=== PATIENT | female | born 1970 | race American Indian/Alaskan Native ===

== ENCOUNTER 2018-05-06 20:39 | Emergency (ER) | payer SELFPAY | END 2018-05-06 20:40 | LOC: ED 20:39 | DX: R51 Headache (principal); Z53.21 Procedure and treatment not carried out due to patient leaving prior to being seen by health care provider ==

== ENCOUNTER 2019-08-10 09:58 | Emergency (ER) | payer SELFPAY ==
[2019-08-10 10:40] VITALS: BP 128/50
[2019-08-10] MEDS ORDERED: BENZONATATE 100 MG CAP PO ONE (12:21)
[2019-08-10] MEDS ORDERED: KETOROLAC 60 MG/2 ML INJ IM ONE (12:21)
[2019-08-10] MEDS ORDERED: predniSONE 20 MG TAB PO ONE (12:21)
--- NOTE | 2019-08-10 13:02 | XRay Report ---
CHEST 2 VIEWS INDICATION / CLINICAL INFORMATION: Cough. COMPARISON: None available. FINDINGS: SUPPORT DEVICES: None. HEART / MEDIASTINUM: The heart size and pulmonary vasculature are normal. LUNGS / PLEURA: No significant pulmonary or pleural abnormality. No pneumothorax. ADDITIONAL FINDINGS: No significant additional findings. IMPRESSION: No acute findings. Signer Name: Vasu Villavicencio MD Signed: 08/10/2019 12:58 PM Workstation Name: [id number]
--- NOTE | 2019-08-10 13:31 | Emergency Department Report ---
ED Back Pain/Injury HPI - General Chief Complaint: Upper Respiratory Infection Stated Complaint: COUGH, BACK PAIN, Time Seen by Provider: 08/10/19 12:20 Source: patient Limitations: No Limitations - History of Present Illness Initial Comments: This is a 49-year-old female nontoxic, well nourished in appearance, no acute signs of distress presents to the ED with c/o of acute on chronic lower back pain x2 days. Patient also stated has a nonproductive cough x1 month. Denies any sick contacts. Patient denies any recent travels, long car, recent hospital stays. Patient denies any calf pain or calf tenderness. Patient stated that the past 2 days he was moving and developed this pain. Patient denies any radiation of pain. Patient denies any trauma. Denies any bladder or bowel instability. Patient denies any urinary symptoms. Denies any fever, chills, nausea, vomiting, headache, stiff neck, chest pain or shortness of breath. Patient denies any numbness or tingling. Allergies includes steroids. PMH includes cholecystectomy and headaches. MD Complaint: back pain -: days(s) Similar Symptoms Previously: Yes Place: home Radiation: none Severity: mild Severity scale (0 -10): 8 Quality: aching Consistency: intermittent Improves With: immobilization, sitting upright Worsens With: movement, walking Context: while lifting, turning/twisting Associated Symptoms: cough. denies: confusion, chest pain, numbness, difficulty walking, difficulty urinating, diaphoresis, incontinence, fever/chills, headaches, abdominal pain, loss of appetite, malaise, nausea/vomiting, rash, seizure, shortness of breath, syncope - Related Data Home Medications Medication Instructions Recorded Confirmed Last Taken Naproxen [Naprosyn TAB] 500 mg PO BID PRN 09/28/14 09/28/14 Unknown acetaZOLAMIDE [Diamox TAB] 500 mg PO BID PRN 09/28/14 09/28/14 Unknown Previous Rx's Medication Instructions Recorded Last Taken Type Ibuprofen [Motrin] 800 mg PO Q8HR PRN #30 tablet 11/07/18 Unknown Rx levETIRAcetam [Keppra TAB] 500 mg PO BID #60 tablet 11/07/18 Unknown Rx Cyclobenzaprine [Flexeril] 10 mg PO QHS PRN #10 tablet 08/10/19 Unknown Rx Naproxen 500 mg PO Q12H PRN #20 tablet 08/10/19 Unknown Rx Allergies Allergy/AdvReac Type Severity Reaction Status Date / Time CITRUS Allergy Hives Uncoded 09/28/14 10:49 STEROID Allergy Unknown Uncoded 01/10/15 13:08 ED Review of Systems ROS: Stated complaint: COUGH, BACK PAIN, Other details as noted in HPI Constitutional: denies: chills, fever Eyes: denies: eye pain, eye discharge, vision change ENT: congestion. denies: ear pain, throat pain Respiratory: cough. denies: shortness of breath, wheezing Cardiovascular: denies: chest pain, palpitations Endocrine: no symptoms reported Gastrointestinal: denies: abdominal pain, nausea, diarrhea Genitourinary: denies: urgency, dysuria, discharge Musculoskeletal: back pain. denies: joint swelling, arthralgia Skin: denies: rash, lesions Neurological: denies: headache, weakness, paresthesias Psychiatric: denies: anxiety, depression Hematological/Lymphatic: denies: easy bleeding, easy bruising ED Past Medical Hx - Past Medical History Previous Medical History?: Yes Hx Hypertension: No Hx Headaches / Migraines: Yes Additional medical history: Pseudotumor cerebri, hidradenitis suppurativa, Intracranial HTN, Blood clots in brain - Surgical History Past Surgical History?: Yes Hx Cholecystectomy: Yes Additional Surgical History: breast, axillary cyst removal - Social History Smoking Status: Current Some Day Smoker Substance Use Type: Alcohol - Medications Home Medications: Home Medications Medication Instructions Recorded Confirmed Last Taken Type Naproxen [Naprosyn TAB] 500 mg PO BID PRN 09/28/14 09/28/14 Unknown History acetaZOLAMIDE [Diamox TAB] 500 mg PO BID PRN 09/28/14 09/28/14 Unknown History Ibuprofen [Motrin] 800 mg PO Q8HR PRN #30 tablet 11/07/18 Unknown Rx levETIRAcetam [Keppra TAB] 500 mg PO BID #60 tablet 11/07/18 Unknown Rx Cyclobenzaprine [Flexeril] 10 mg PO QHS PRN #10 tablet 08/10/19 Unknown Rx Naproxen 500 mg PO Q12H PRN #20 tablet 08/10/19 Unknown Rx ED Physical Exam - General Limitations: No Limitations General appearance: alert, in no apparent distress - Head Head exam: Present: atraumatic, normocephalic - Eye Eye exam: Present: normal appearance - ENT ENT exam: Present: normal exam, normal orophraynx - Neck Neck exam: Present: normal inspection, full ROM. Absent: tenderness, meningismus, lymphadenopathy - Respiratory Respiratory exam: Present: normal lung sounds bilaterally. Absent: respiratory distress, wheezes, rales, rhonchi, stridor, chest wall tenderness, accessory muscle use, decreased breath sounds, prolonged expiratory - Cardiovascular Cardiovascular Exam: Present: regular rate, normal rhythm, normal heart sounds. Absent: bradycardia, tachycardia, irregular rhythm, systolic murmur, diastolic murmur, rubs, gallop - Extremities Exam Extremities exam: Present: normal inspection, full ROM - Back Exam Back exam: Present: normal inspection, full ROM, paraspinal tenderness (lumbar paraspinal). Absent: tenderness, CVA tenderness (R), CVA tenderness (L), muscle spasm, vertebral tenderness, rash noted - Expanded Back Exam Expanded Back exam: Absent: saddle anesthesia Back exam: Negative Straight Leg Raising: Left, Right - Neurological Exam Neurological exam: Present: alert, oriented X3, normal gait - Psychiatric Psychiatric exam: Present: normal affect, normal mood - Skin Skin exam: Present: warm, dry, intact, normal color. Absent: rash ED Course Vital Signs 08/10/19 10:39 Temperature 98.5 F Pulse Rate 90 Respiratory 18 Rate Blood Pressure 128/50 O2 Sat by Pulse 98 Oximetry - Reevaluation(s) Reevaluation #1: 08/10/19 13:32 Patient is speaking in full sentences with no signs of distress noted. ED Medical Decision Making - Medical Decision Making This is a 49-year-old female that presents with viral bronchitis and low back strain. Patient is stable was examined by me. Chest x-ray has been obtained and dictated by radiologist with normal exam. Patient is notified of x-ray results with no questions noted. Patient was instructed to increase hydration, rest and take Motrin for fever episodes. There is no spinal tenderness. There is no cauda equina syndrome during examination. No bladder or bowel instability. Patient received Toradol 60 mg IM in the ED which preceded his symptoms has resolved and subsided. Patient is discharged with muscle relaxant and naproxen. Patient was instructed not to operate any machinery while taking muscle relaxant as they cause her drowsiness. Patient was referred to Follow-up with a primary care doctor in 3-5 days or if symptoms worsen and continue return to emergency room as soon as possible. At time of discharge, the patient does not seem toxic or ill in appearance. No acute signs of distress noted. Patient agrees to discharge treatment plan of care. No further questions noted by the patient. This chart is dictated with using [employer] Dictation Program Critical care attestation.: If time is entered above; I have spent that time in minutes in the direct care of this critically ill patient, excluding procedure time. ED Disposition Clinical Impression: Viral bronchitis Low back strain Qualifiers: Encounter type: initial encounter Qualified Code(s): S39.012A - Strain of muscle, fascia and tendon of lower back, initial encounter Disposition: TO HOME OR SELFCARE Is pt being admited?: No Does the pt Need Aspirin: No Condition: Stable Instructions: Acute Bronchitis (ED), Low Back Strain (ED), Cyclobenzaprine (By mouth) Additional Instructions: Follow-up with your primary care doctor in 3-5 days or if symptoms worsen such as bladder or bowel stability, chest pain, short of breath, numbness or tingling sensation in extremities, headache, dizziness, visual changes, nausea vomiting, or abdominal pain, return back to emergency room as was possible. Take ibuprofen and Flexeril as prescribed. Do not operate heavy machinery while taking Flexeril due to sedation Prescriptions: Cyclobenzaprine [Flexeril] 10 mg PO QHS PRN #10 tablet PRN Reason: Muscle Spasm Naproxen 500 mg PO Q12H PRN #20 tablet PRN Reason: Pain , Severe (7-10) Referrals: PRIMARY MD TREE [Primary Care Provider] - 3-5 Days PAULA ALBERTS MD [Staff Physician] - 3-5 Days [facility] [Outside] - 3-5 Days Forms: Work/School Release Form(ED)
== END 2019-08-10 13:43 | disposition home or self-care (01) ==
LOC: ED 09:58
DX: S39.012A Strain of muscle, fascia and tendon of lower back, initial encounter (principal); J20.8 Acute bronchitis due to other specified organisms; G43.909 Migraine, unspecified, not intractable, without status migrainosus; F17.200 Nicotine dependence, unspecified, uncomplicated; F10.10 Alcohol abuse, uncomplicated; Z90.49 Acquired absence of other specified parts of digestive tract; Z79.899 Other long term (current) drug therapy; Z88.8 Allergy status to other drugs, medicaments and biological substances; X58.XXXA Exposure to other specified factors, initial encounter; Y93.89 Activity, other specified; Y92.89 Other specified places as the place of occurrence of the external cause; Y99.8 Other external cause status
CPT/HCPCS: 71046; 96372; 99283; J1885; J7512

== ENCOUNTER 2021-10-20 06:17 | Emergency (ER) | payer OTHER ==
[2021-10-20] MEDS ORDERED: oxyCODONE /ACETAMINOPHEN 5-325MG TAB PO ONE (06:43)
--- NOTE | 2021-10-20 07:22 | XRay Report ---
RIGHT HIP 2 VIEW INDICATION / CLINICAL INFORMATION: pain. COMPARISON: None available. FINDINGS: BONES / JOINT(S): No acute fracture or subluxation. No significant arthritis. SOFT TISSUES: No significant abnormality. ADDITIONAL FINDINGS: None. IMPRESSION: 1. No acute findings. Signer Name: Yung Cochran MD Signed: 10/20/2021 7:18 AM Workstation Name: [email or web address]
--- NOTE | 2021-10-20 07:31 | Emergency Department Report ---
ED Extremity Problem HPI - General Chief complaint: Extremity Problem,Nontraumatic Stated complaint: HIP PAIN Time Seen by Provider: 10/20/21 06:34 Source: patient Mode of arrival: Ambulatory Limitations: No Limitations - History of Present Illness Initial comments: 51-year-old black female with a past medical history of GERD, intracranial hypertension, and seizures presents to the emergency department for evaluation of right hip pain. She states that pain started initially on and got significantly worse last night. She denies injury or trauma and states that pain starts at her right hip and radiates down her posterior thigh leg. She s tates that pain is severe, sharp with some numbness and tingling intermittently. MD Complaint: extremity pain -: Gradual, days(s) (3) Location: right, lower extremity History of Same: No -: No myalgia, No arthralgia, No associated dyspnea, No associated chest pain Severity scale (0 -10): 8 Quality: burning, aching Consistency: constant Worsens with: weight bearing, walking Associated Symptoms: denies: chest pain, shortness of breath, fever, myalgias, arthralgias, rash - Related Data Home Medications Medication Instructions Recorded Confirmed Last Taken Naproxen [Naprosyn TAB] 500 mg PO BID PRN 09/28/14 09/28/14 Unknown acetaZOLAMIDE [Diamox TAB] 500 mg PO BID PRN 09/28/14 09/28/14 Unknown Previous Rx's Medication Instructions Recorded Last Taken Type Ibuprofen [Motrin] 800 mg PO Q8HR PRN #30 tablet 11/07/18 Unknown Rx levETIRAcetam [Keppra TAB] 500 mg PO BID #60 tablet 11/07/18 Unknown Rx Cyclobenzaprine [Flexeril] 10 mg PO QHS PRN #10 tablet 08/10/19 Unknown Rx Naproxen 500 mg PO Q12H PRN #20 tablet 08/10/19 Unknown Rx Acetaminophen/Codeine [Tylenol 1 tab PO Q6H PRN #10 tab 10/20/21 Unknown Rx /Codeine # 3 tab] Lidocaine [Lidoderm] 1 each TP DAILY PRN #10 patch 10/20/21 Unknown Rx Allergies Allergy/AdvReac Type Severity Reaction Status Date / Time CITRUS Allergy Hives Uncoded 09/28/14 10:49 STEROID Allergy Unknown Uncoded 01/10/15 13:08 ED Review of Systems ROS: Stated complaint: HIP PAIN Other details as noted in HPI Comment: All other systems reviewed and negative Constitutional: denies: chills, fever Respiratory: denies: shortness of breath, SOB with exertion, SOB at rest Cardiovascular: denies: chest pain, palpitations, dyspnea on exertion Gastrointestinal: denies: abdominal pain, nausea, vomiting Genitourinary: denies: urgency, dysuria, frequency Musculoskeletal: denies: back pain Neurological: denies: headache, weakness ED Past Medical Hx - Past Medical History Hx Hypertension: No Hx Headaches / Migraines: Yes Additional medical history: Pseudotumor cerebri, hidradenitis suppurativa, Intracranial HTN, Blood clots in brain - Surgical History Hx Cholecystectomy: Yes Additional Surgical History: breast, axillary cyst removal - Social History Smoking Status: Current Some Day Smoker Substance Use Type: Alcohol - Medications Home Medications: Home Medications Medication Instructions Recorded Confirmed Last Taken Type Naproxen [Naprosyn TAB] 500 mg PO BID PRN 09/28/14 09/28/14 Unknown History acetaZOLAMIDE [Diamox TAB] 500 mg PO BID PRN 09/28/14 09/28/14 Unknown History Ibuprofen [Motrin] 800 mg PO Q8HR PRN #30 tablet 11/07/18 Unknown Rx levETIRAcetam [Keppra TAB] 500 mg PO BID #60 tablet 11/07/18 Unknown Rx Cyclobenzaprine [Flexeril] 10 mg PO QHS PRN #10 tablet 08/10/19 Unknown Rx Naproxen 500 mg PO Q12H PRN #20 tablet 08/10/19 Unknown Rx Acetaminophen/Codeine [Tylenol 1 tab PO Q6H PRN #10 tab 10/20/21 Unknown Rx /Codeine # 3 tab] Lidocaine [Lidoderm] 1 each TP DAILY PRN #10 patch 10/20/21 Unknown Rx ED Physical Exam - General Limitations: No Limitations General appearance: alert, in no apparent distress - Head Head exam: Present: atraumatic, normocephalic - Eye Eye exam: Present: normal appearance. Absent: conjunctival injection - Neck Neck exam: Present: normal inspection - Respiratory Respiratory exam: Present: normal lung sounds bilaterally. Absent: respiratory distress - Cardiovascular Cardiovascular Exam: Present: regular rate, normal heart sounds - GI/Abdominal GI/Abdominal exam: Present: soft, normal bowel sounds. Absent: distended, tenderness, guarding, rebound, rigid - Extremities Exam Extremities exam: Present: normal inspection, full ROM - Expanded Lower Extremity Exam Right Hip exam: Present: normal inspection, tenderness. Absent: swelling, abrasion, ecchymosis, crepidus, dislocation, erythema Upper Leg exam: Present: tenderness Lower Leg exam: Present: normal inspection, tenderness Neuro vascular tendon exam: Present: no vascular compromise. Absent: pulse deficit, abnormal cap refill, motor deficit, extremity cold to touch Gait: Positive: observed and limited by pain 1 - Pain starts at right hip and radiates down with burning tingling and numbness to right lower leg - Back Exam Back exam: Present: normal inspection - Neurological Exam Neurological exam: Present: alert, oriented X3 - Psychiatric Psychiatric exam: Present: normal affect, normal mood - Skin Skin exam: Present: warm, dry, intact, normal color ED Course Vital Signs 10/20/21 06:23 Temperature 98.9 F Pulse Rate 80 Respiratory 16 Rate Blood Pressure 111/59 O2 Sat by Pulse 99 Oximetry - Reevaluation(s) Reevaluation #1: 10/20/21 07:33 Pain minimally improved ED Medical Decision Making - Radiology Data Radiology results: report reviewed, image reviewed Right hip x-ray: FINDINGS: BONES / JOINT(S): No acute fracture or subluxation. No significant arthritis. SOFT TISSUES: No significant abnormality. ADDITIONAL FINDINGS: None. IMPRESSION: 1. No acute findings. - Medical Decision Making 51-year-old black female with a past medical history of GERD, intracranial hypertension, and seizures presents to the emergency department for evaluation of right hip pain. She states that pain started initially on and got significantly worse last night. She denies injury or trauma and states that pain starts at her right hip and radiates down her posterior thigh leg. She states that pain is severe, sharp with some numbness and tingling intermittently. Right hip x-ray without any acute abnormalities noted. Symptoms and assessment consistent with lumbar radicular pain. Patient states that she has allergies to steroids and cannot take NSAIDs, so she will be treated with few day course of Tylenol with codeine use as needed along with lidocaine patches. She is advised to follow-up with orthopedics for further evaluation and management and return to the emergency department for any concerning symptoms. She verbalized understanding of and agreement with plan of care. Critical care attestation.: If time is entered above; I have spent that time in minutes in the direct care of this critically ill patient, excluding procedure time. ED Disposition Clinical Impression: Lumbar radiculopathy, right Disposition: HOME / SELF CARE / HOMELESS Is pt being admited?: No Does the pt Need Aspirin: No Condition: Stable Instructions: Radicular Pain Additional Instructions: Take medications as prescribed. Follow-up with primary care provider or orthopedics for further evaluation and management. Return to the emergency department for any concerning symptoms. Prescriptions: Lidocaine [Lidoderm] 1 each TP DAILY PRN #10 patch PRN Reason: Pain, Moderate (4-6) Acetaminophen/Codeine [Tylenol /Codeine # 3 tab] 1 tab PO Q6H PRN #10 tab PRN Reason: Pain , Severe (7-10) Referrals: TOMMY MEDINA MD [Staff Physician] - 3-5 Days RONNIE MUSA MD [Referring] - 3-5 Days Time of Disposition: 07:38
[2021-10-20 08:16] VITALS: BP 144/90
== END 2021-10-20 08:15 | disposition home or self-care (01) ==
LOC: ED 06:17
DX: M54.16 Radiculopathy, lumbar region (principal); I10 Essential (primary) hypertension; F17.200 Nicotine dependence, unspecified, uncomplicated; F10.20 Alcohol dependence, uncomplicated; Z90.49 Acquired absence of other specified parts of digestive tract
CPT/HCPCS: 99283

== ENCOUNTER 2022-01-19 11:00 | Emergency (ER) | payer OTHER ==
[2022-01-19] MEDS ORDERED: dexAMETHasone 4 MG/ML VIAL IM STA (11:50)
[2022-01-19] MEDS ORDERED: KETOROLAC 60 MG/2 ML INJ IM ONE (11:50)
--- NOTE | 2022-01-19 12:26 | Emergency Department Report ---
ED General Adult HPI - General Chief complaint: Back Pain/Injury Stated complaint: BACK PAIN/PULLED MUSCLE Time Seen by Provider: 01/19/22 11:44 Source: patient Mode of arrival: Ambulatory Limitations: Physical Limitation - History of Present Illness Initial comments: Patient presents with complaints of left-sided back pain x last night. Patient states that while she was bending over putting on her compression hose she suddenly got pain on the left side of her back. She describes the pain as a tightness and states it feels like a muscle spasm. No loss of bladder/bowel control, chest pain, shortness of breath, or numbness/tingling/weakness in her limbs. Pain improves with bending over. She states she tried some leftover prednisone last night and baclofen which did not help. Severity scale (0 -10): 8 - Related Data Home Medications Medication Instructions Recorded Confirmed Last Taken Naproxen [Naprosyn TAB] 500 mg PO BID PRN 09/28/14 09/28/14 Unknown acetaZOLAMIDE [Diamox TAB] 500 mg PO BID PRN 09/28/14 09/28/14 Unknown Previous Rx's Medication Instructions Recorded Last Taken Type Ibuprofen [Motrin] 800 mg PO Q8HR PRN #30 tablet 11/07/18 Unknown Rx levETIRAcetam [Keppra TAB] 500 mg PO BID #60 tablet 11/07/18 Unknown Rx Cyclobenzaprine [Flexeril] 10 mg PO QHS PRN #10 tablet 08/10/19 Unknown Rx Naproxen 500 mg PO Q12H PRN #20 tablet 08/10/19 Unknown Rx Acetaminophen/Codeine [Tylenol 1 tab PO Q6H PRN #10 tab 10/20/21 Unknown Rx /Codeine # 3 tab] Lidocaine [Lidoderm] 1 each TP DAILY PRN #10 patch 10/20/21 Unknown Rx Prednisone [predniSONE 10 mg 10 mg PO .TAPER #1 pack 01/19/22 Unknown Rx (6-Day Pack, 21 Tabs)] methocarbamoL [Methocarbamol] 750 - 1,500 mg PO TID PRN #30 tab 01/19/22 Unknown Rx Allergies Allergy/AdvReac Type Severity Reaction Status Date / Time CITRUS Allergy Hives Uncoded 09/28/14 10:49 STEROID Allergy Unknown Uncoded 01/10/15 13:08 ED Review of Systems ROS: Stated complaint: BACK PAIN/PULLED MUSCLE Other details as noted in HPI Constitutional: denies: chills, fever Respiratory: denies: shortness of breath Cardiovascular: denies: chest pain Gastrointestinal: denies: abdominal pain Genitourinary: denies: urgency Musculoskeletal: back pain Skin: denies: change in color Neurological: abnormal gait. denies: headache, numbness, paresthesias ED Past Medical Hx - Past Medical History Previous Medical History?: Yes Hx Hypertension: No Hx Headaches / Migraines: Yes Additional medical history: Pseudotumor cerebri, hidradenitis suppurativa, Intracranial HTN, Blood clots in brain, Sciatica, Back pain - Surgical History Past Surgical History?: Yes Hx Cholecystectomy: Yes Additional Surgical History: breast, axillary cyst removal - Social History Smoking Status: Current Some Day Smoker Substance Use Type: Alcohol - Medications Home Medications: Home Medications Medication Instructions Recorded Confirmed Last Taken Type Naproxen [Naprosyn TAB] 500 mg PO BID PRN 09/28/14 09/28/14 Unknown History acetaZOLAMIDE [Diamox TAB] 500 mg PO BID PRN 09/28/14 09/28/14 Unknown History Ibuprofen [Motrin] 800 mg PO Q8HR PRN #30 tablet 11/07/18 Unknown Rx levETIRAcetam [Keppra TAB] 500 mg PO BID #60 tablet 11/07/18 Unknown Rx Cyclobenzaprine [Flexeril] 10 mg PO QHS PRN #10 tablet 08/10/19 Unknown Rx Naproxen 500 mg PO Q12H PRN #20 tablet 08/10/19 Unknown Rx Acetaminophen/Codeine [Tylenol 1 tab PO Q6H PRN #10 tab 10/20/21 Unknown Rx /Codeine # 3 tab] Lidocaine [Lidoderm] 1 each TP DAILY PRN #10 patch 10/20/21 Unknown Rx Prednisone [predniSONE 10 mg 10 mg PO .TAPER #1 pack 01/19/22 Unknown Rx (6-Day Pack, 21 Tabs)] methocarbamoL [Methocarbamol] 750 - 1,500 mg PO TID PRN #30 tab 01/19/22 Unknown Rx ED Physical Exam - General Limitations: Physical Limitation General appearance: alert, in no apparent distress, obese - Head Head exam: Present: atraumatic, normocephalic - Eye Eye exam: Present: normal appearance. Absent: scleral icterus - Respiratory Respiratory exam: Absent: respiratory distress - Cardiovascular Cardiovascular Exam: Present: regular rate - Back Exam Back exam: Present: full ROM, paraspinal tenderness (Left-sided lumbar, thoracic), other (Strength and sensation of the lower extremities is normal). Absent: vertebral tenderness - Neurological Exam Neurological exam: Present: alert, oriented X3, other (Patient ambulating with walker) - Psychiatric Psychiatric exam: Present: normal affect, normal mood ED Course Vital Signs 01/19/22 11:43 Temperature 98.6 F Pulse Rate 69 Respiratory 20 Rate Blood Pressure 127/75 [Right] O2 Sat by Pulse 98 Oximetry ED Medical Decision Making - Medical Decision Making Patient presents with complaints of left-sided back pain x last night. Patient states that while she was bending over putting on her compression hose she suddenly got pain on the left side of her back. She describes the pain as a tightness and states it feels like a muscle spasm. No loss of bladder/bowel control, chest pain, shortness of breath, or numbness/tingling/weakness in her limbs. Pain improves with bending over. She states she tried some leftover prednisone last night and baclofen which did not help. History and physical consistent with muscle strain of back. Discussed icing and stretching. Patient given Toradol and Decadron and will discharge home with prednisone and Robaxin. Patient states she is unable to take NSAIDs due to gastritis. She is otherwise well-appearing her vitals are within normal limits. Patient stable for discharge home. Recommend follow-up with with PCP as needed. Strict return precautions discussed in detail with patient who verbalizes understand Critical care attestation.: If time is entered above; I have spent that time in minutes in the direct care of this critically ill patient, excluding procedure time. ED Disposition Clinical Impression: Back strain Disposition: HOME / SELF CARE / HOMELESS Is pt being admited?: No Condition: Stable Instructions: Lumbar Strain Prescriptions: methocarbamoL [Methocarbamol] 750 - 1,500 mg PO TID PRN #30 tab PRN Reason: muscle spasm/tightness Prednisone [predniSONE 10 mg (6-Day Pack, 21 Tabs)] 10 mg PO .TAPER #1 pack Referrals: [facility] [Provider Group] - 3-5 Days
[2022-01-19 12:53] VITALS: BP 155/92
== END 2022-01-19 12:53 | disposition home or self-care (01) ==
LOC: ED 11:00
DX: S39.012A Strain of muscle, fascia and tendon of lower back, initial encounter (principal); X58.XXXA Exposure to other specified factors, initial encounter; Y93.89 Activity, other specified; Y92.89 Other specified places as the place of occurrence of the external cause; Y99.8 Other external cause status; F17.200 Nicotine dependence, unspecified, uncomplicated; F10.20 Alcohol dependence, uncomplicated; Z88.8 Allergy status to other drugs, medicaments and biological substances
CPT/HCPCS: 96372; 99282; J1100; J1885